=== PATIENT | male | born 1955 | race Caucasian/White ===

== ENCOUNTER 2019-12-18 05:05 | Emergency (ER) | payer BC, OTHER, SELFPAY ==
--- NOTE | ~2019-12-18 | XR_ITS ---
EXAMINATION: XR chest 2V DATE: 12/18/2019 07:51 INDICATION: Generalized chest pain TECHNIQUE: Frontal and lateral views of the chest are obtained COMPARISON: 03/17/2015 FINDINGS: The lungs are free of acute opacities. There is no pleural effusion or pneumothorax. The ca rdiomediastinal silhouette is normal. There is mild thoracic spondylosis. IMPRESSION: 1. No acute cardiopulmonary abnormality. Reviewed, dictated and finalized at location A. 3D ARTIST
--- NOTE | 2019-12-18 05:14 | ECG_ITS ---
Measurements Intervals [place] Rate: 70 P: 29 [place]: 167 QRS: -18 QRSD: 98 T: -8 QT: 387 QTc: 420 Interpretive Statements SINUS RHYTHM DELAYED PRECORDIAL R/S TRANSITION BORDERLINE ST-T WAVE ABNORMALITY- INFERIOR LEADS BASELINE ARTIFACT- I, II, III, AVF, V4 BORDERLINE ECG Electronically Signed On 12-18-2019 8:09:44 [employer] by Chris Casper D.O.
--- NOTE | 2019-12-18 07:10 | ED.CHESTPAIN ---
HPI - Chest Pain General Chief Complaint: Chest Pain <Edmar Bueno MD - Last Filed: 12/18/19 07:36> Stated Complaint: Chest pain <Edmar Bueno MD - Last Filed: 12/18/19 07:36> Time Seen by Provider: 12/18/19 05:25 <Edmar Bueno MD - Last Filed: 12/18/19 07:36> Source: patient and family <Edmar Bueno MD - Last Filed: 12/18/19 07:36> Mode of arrival: ambulatory <Edmar Bueno MD - Last Filed: 12/18/19 07:36> Limitations: no limitations <Edmar Bueno MD - Last Filed: 12/18/19 07:36> History of Present Illness HPI narrative: 64-year-old man with history of hypertension, dyslipidemia, coronary artery disease status post stents comes in this morning complaining of intense burning precordial chest pain that he woke up with This morning. Patient states that he has been having some intermittent symptoms that are similar for the last few days. The symptoms are usually worse in the morning. he states the pain is similar to when he had an WI approximately 5 years ago. He denies nausea, vomiting, shortness of breath, lightheadedness, sweaty and syncope. He noticed his blood pressure was elevated at home. <Edmar Bueno MD - Last Filed: 12/18/19 07:36> MD complaint: chest pain <Edmar Bueno MD - Last Filed: 12/18/19 07:36> Pertinent past history: coronary artery disease and prior WI <Edmar Bueno MD - Last Filed: 12/18/19 07:36> Onset (ago): hour(s) (1) <Edmar Bueno MD - Last Filed: 12/18/19 07:36> Timing of current episode: constant <Edmar Bueno MD - Last Filed: 12/18/19 07:36> Prior episodes: Yes <Edmar Bueno MD - Last Filed: 12/18/19 07:36> Onset: during rest and awoke with symptoms <Edmar Bueno MD - Last Filed: 12/18/19 07:36> Pain location: substernal <Edmar Bueno MD - Last Filed: 12/18/19 07:36> Pain radiation: right arm, left arm, left shoulder and right shoulder <Edmar Bueno MD - Last Filed: 12/18/19 07:36> Severity: severe <Edmar Bueno MD - Last Filed: 12/18/19 07:36> Quality: burning <Edmar Bueno MD - Last Filed: 12/18/19 07:36> Relieving factors: nothing <Edmar Bueno MD - Last Filed: 12/18/19 07:36> Exacerbating factors: nothing <Edmar Bueno MD - Last Filed: 12/18/19 07:36> Treatment prior to arrival: none <Edmar Bueno MD - Last Filed: 12/18/19 07:36> Risk Factors Coronary artery disease risk factors: hyperlipidemia, hypertension and family history of CAD before age 50 <Edmar Bueno MD - Last Filed: 12/18/19 07:36> Related Data Home Medications: Home Medications Medication Instructions Recorded Confirmed atorvastatin 80 mg PO DAILY 12/18/19 12/18/19 lisinopril 5 mg PO DAILY 12/18/19 12/18/19 metoprolol tartrate 25 mg PO DAILY 12/18/19 12/18/19 <Edmar Bueno MD - Last Filed: 12/18/19 07:36> Review of Systems Constitutional: Constitutional: Denies chills and Denies fever(s) <Edmar Bueno MD - Last Filed: 12/18/19 07:36> Eyes: Eyes: Denies change in vision and Denies photophobia <Edmar Bueno MD - Last Filed: 12/18/19 07:36> ENT: Denies dysphagia, Denies nasal congestion and Denies sore throat <Edmar Bueno MD - Last Filed: 12/18/19 07:36> Cardiovascular: Cardiovascular: Denies chest pain and Denies radiating jaw, neck or arm pain <Edmar Bueno MD - Last Filed: 12/18/19 07:36> Respiratory: Respiratory: Denies cough, Denies dyspnea and Denies wheezing <Edmar Bueno MD - Last Filed: 12/18/19 07:36> Gastrointestinal: Gastrointestinal: Denies abdominal pain, Reports heartburn, Denies nausea and Denies vomiting <Edmar Bueno MD - Last Filed: 12/18/19 07:36> Genitourinary: Genitourinary: Denies dysuria and Denies urinary frequency <Edmar Bueno MD - Last Filed: 12/18/19 07:36> Integumentary
[2019-12-18 07:32] LABS: Basophils Absolute Auto 0.03 K/mm3 (0.00-0.10); Basophils Percent Auto 0.7 % (0.0-1.0); Eosinophils Absolute Auto 0.11 K/mm3 (0.02-0.50); Eosinophils Percent Auto 2.5 % (1.0-6.0); Hematocrit 41.3 % (37.0-46.0); Hemoglobin 14.1 g/dL (12.4-15.3); Immature Granulocyte Absolute 0.01 K/mm3 (0.00-0.00); Immature Granulocyte Percent A 0.2 % (0.0-0.0); Lymphocytes Absolute Auto 1.83 K/mm3 (1.10-4.50); Lymphocytes Percent Auto 42.1 % (18.0-42.0); Mean Corpuscular HGB Conc 34.1 g/dL (32.0-36.0); Mean Corpuscular Hemoglobin 31.3 pg (27.0-31.0); Mean Corpuscular Volume 91.6 fL (78.0-102.0); Mean Platelet Volume 9.7 fl (8.7-11.0); Monocytes Absolute Auto 0.35 K/mm3 (0.10-0.90); Neutrophils Percent Auto 46.5 % (50.0-70.0); Platelet Count Result 224 K/mm3 (150-420); Red Blood Count 4.51 M/mm3 (4.70-6.10); Red Cell Distribution Width 12.2 % (11.6-14.4); White Blood Count 4.4 K/mm3 (4.8-10.8)
[2019-12-18 07:33] LABS: Alanine Aminotransferase 48 U/L (16-63); Albumin Level 3.7 g/dL (3.4-5.0); Alkaline Phosphatase 71 U/L (46-116); Anion Gap 14.2 mmol/L (7-16); Aspartate Amino Transferase 25 U/L (15-37); Bilirubin,Total 0.3 mg/dL (0.00-1.00); Blood Urea Nitrogen 20 mg/dL (7-18); Calcium 8.7 mg/dL (8.5-10.1); Carbon Dioxide 26 mmol/L (21-32); Chloride 106 mmol/L (98-108); Estimated Glomerular Filt Rate > 60; Glucose 103 mg/dL (70-99); Lipase 174 U/L (73-393); Osmolality Calculated 296 mOsm/kg (285-295); Potassium 4.2 mmol/L (3.5-5.1); Sodium 142 mmol/L (136-145); Total Protein 7.3 g/dL (6.4-8.2); Troponin I 0.03 ng/mL (0.00-0.056)
[2019-12-18 07:41] LABS: D Dimer 0.22 mg/L (0.19-0.50); INR 0.9; Partial Thromboplastin Time 25.1 SEC (22.3-31.6); Prothrombin Time 9.7 Seconds (9.64-11.0)
[2019-12-18 09:33] LABS: Troponin I 0.89 ng/mL (0.00-0.056)
--- NOTE | 2019-12-18 09:44 | ECG_ITS ---
Measurements Intervals [place] Rate: 58 P: 3 MT: 154 QRS: 29 QRSD: 94 T: -16 QT: 373 QTc: 368 Interpretive Statements SINUS BRADYCARDIA T WAVE ABNORMALITY IN ANTEROLATERAL LEADS- CONSIDER ISCHEMIA ABNORMAL ECG Electronically Signed On 12-18-2019 9:55:14 NURSE RN BSN by Chris Casper D.O.
[2019-12-18 09:54] VITALS: BP 165/93; PULSE 63; RESP 18; O2SAT 97
--- NOTE | 2019-12-18 09:58 | PC.NURSE ---
Patient resting in bed, he remains CP free. NSR rate 60. Patient accepted to [facility] for transfer, awaiting bed assignment. Patient had been given ASA 325 mg PO upon arrival to the ED
[2019-12-18] MEDS: HEPARIN SODIUM 5,000 UNITS/ML VIAL 5000 UNITS (10:13)
[2019-12-18] MEDS: HEPARIN SOD/D5W 100 UNITS/ML 25,000 UNITS/250 ML BAG 10 UNITS (10:28)
--- NOTE | 2019-12-18 10:31 | PC.NURSE ---
Heparin gtt started. Patient requesting something for motion sickness prior to transport. ERP is ordering scopolamine patch. Patient accepted to [facility] Rm [id number]
[2019-12-18] MEDS: SCOPOLAMINE 1.5 MG PATCH TRANSDERM (10:34)
[2019-12-18 10:52] VITALS: BP 148/87; PULSE 70; RESP 16; O2SAT 96
[2019-12-18 10:57] VITALS: BP 149/87; PULSE 70; RESP 16; O2SAT 96
== END 2019-12-18 11:15 | disposition short-term general hospital (02) ==
PROVIDERS: Emergency Provider Emergency Medicine; PCP Family Medicine
DX: R79.9 Abnormal finding of blood chemistry, unspecified (principal); I25.9 Chronic ischemic heart disease, unspecified; E78.5 Hyperlipidemia, unspecified; I10 Essential (primary) hypertension; I25.2 Old myocardial infarction
CPT/HCPCS: 36415; 71046; 80053; 83690; 84484; 85025; 85380; 85610; 85730; 93005; 96374; 99285; A9270; C9113; J1644

== ENCOUNTER 2020-01-18 16:00 | Emergency (ER) | payer BC, SELFPAY ==
--- NOTE | ~2020-01-18 | XR_ITS ---
EXAMINATION: XR chest 1V portable DATE: 01/18/2020 16:27 INDICATION: Inferior chest pain. TECHNIQUE: A single frontal view of the chest was obtained. COMPARISON: Chest 2 views 12/18/2019 FINDINGS: Calcified pulmonary nodules are consistent with old granulomatous disease. No pleural effus ion or pneumothorax. The heart size is normal. IMPRESSION: 1. No acute cardiopulmonary disease. Reviewed, dictated and finalized at location A.
--- NOTE | 2020-01-18 16:10 | ECG_ITS ---
Measurements Intervals [place] Rate: 73 P: 46 [place]: 181 QRS: -10 QRSD: 98 T: -34 QT: 373 QTc: 413 Interpretive Statements SINUS RHYTHM T WAVE ABNORMALITY IN ANTEROLATERAL LEADS- CONSIDER ISCHEMIA ABNORMAL ECG Electronically Signed On 01-18-2020 19:51:45 CDT by Chris Casper D.O.
[2020-01-18 16:18] VITALS: BP 151/90; PULSE 80; RESP 16; TEMP 36.6; O2SAT 96
[2020-01-18 16:26] LABS: Basophils Absolute Auto 0.03 K/mm3 (0.00-0.10); Basophils Percent Auto 0.6 % (0.0-1.0); Eosinophils Absolute Auto 0.09 K/mm3 (0.02-0.50); Eosinophils Percent Auto 1.9 % (1.0-6.0); Hematocrit 37.5 % (37.0-46.0); Hemoglobin 12.6 g/dL (12.4-15.3); Immature Granulocyte Absolute 0.01 K/mm3 (0.00-0.00); Immature Granulocyte Percent A 0.2 % (0.0-0.0); Lymphocytes Percent Auto 27.7 % (18.0-42.0); Mean Corpuscular HGB Conc 33.6 g/dL (32.0-36.0); Mean Corpuscular Hemoglobin 31.2 pg (27.0-31.0); Mean Corpuscular Volume 92.8 fL (78.0-102.0); Mean Platelet Volume 10.2 fl (8.7-11.0); Monocytes Absolute Auto 0.35 K/mm3 (0.10-0.90); Monocytes Percent Auto 7.5 % (2.0-11.0); Neutrophils Absolute Auto 2.9 K/mm3 (1.7-7.2); Neutrophils Percent Auto 62.1 % (50.0-70.0); Platelet Count Result 218 K/mm3 (150-420); Red Blood Count 4.04 M/mm3 (4.70-6.10); Red Cell Distribution Width 12.4 % (11.6-14.4); White Blood Count 4.7 K/mm3 (4.8-10.8)
[2020-01-18 16:41] LABS: Partial Thromboplastin Time 24.7 SEC (22.3-31.6); Prothrombin Time 10.1 Seconds (9.64-11.0)
[2020-01-18 16:45] LABS: Alanine Aminotransferase 47 U/L (16-63); Albumin Level 3.7 g/dL (3.4-5.0); Alkaline Phosphatase 60 U/L (46-116); Aspartate Amino Transferase 28 U/L (15-37); Bilirubin,Total 0.4 mg/dL (0.00-1.00); Blood Urea Nitrogen 13 mg/dL (7-18); Calcium 9.3 mg/dL (8.5-10.1); Carbon Dioxide 26 mmol/L (21-32); Chloride 106 mmol/L (98-108); Estimated Glomerular Filt Rate > 60; Glucose 154 mg/dL (70-99); Osmolality Calculated 289 mOsm/kg (285-295); Sodium 138 mmol/L (136-145); Total Protein 6.6 g/dL (6.4-8.2)
[2020-01-18 16:46] LABS: Troponin I < 0.02 ng/mL (0.00-0.056)
--- NOTE | 2020-01-18 16:53 | ED.CHESTPAIN ---
HPI - Chest Pain General Chief Complaint: Chest Pain Stated Complaint: chest pain Source: patient and family Mode of arrival: ambulatory Limitations: no limitations History of Present Illness HPI narrative: This is a 64-year-old gentleman with a history of coronary artery disease status post stent placement back in the end of November is followed by cardiology at [facility], currently presents with some some epigastric discomfort and pain that radiates into his chest epigastric tenderness with some mild shortness of breath with exertion with no nausea vomiting no no fever or chills, the patient is currently without any discomfort or pain, has been occurring off and on for the last 2 to 3 days. complaint: chest discomfort Onset (ago): day(s) Timing of current episode: episodic Prior episodes: Yes Onset: during exertion Pain location: epigastric Pain radiation: none Severity: mild Quality: tightness Relieving factors: rest Exacerbating factors: exertion Associated symptoms: dyspnea Treatment prior to arrival: none Related Data Home Medications Medication Instructions Recorded Confirmed atorvastatin [Lipitor] 80 mg PO DAILY 12/18/19 01/18/20 lisinopril 5 mg PO DAILY 12/18/19 01/18/20 metoprolol tartrate 25 mg PO DAILY 12/18/19 01/18/20 carvedilol 3.125 mg PO BID 01/18/20 01/18/20 ticagrelor [Brilinta] 90 mg PO DAILY 01/18/20 01/18/20 Allergies Allergy/AdvReac Type Severity Reaction Status Date / Time erythromycin base Allergy Mild Swelling Verified 12/18/19 10:04 of Lip/Tongue/Throat Review of Systems Review of Systems: All systems reviewed & are unremarkable except as noted in HPI and below PMFSH Past Medical History Medical History Coronary artery disease History of myocardial infarction Hyperlipidemia Hypertension Surgical History Surgical History S/P coronary artery stent placement Family History Family History Father Acute myocardial infarction, Onset Age: 46 Social History Social History Smoking status: Never smoker Alcohol intake: never Substance use: never Exam Const: General: no acute distress and alert Orientation/consciousness: patient oriented x3 HENMT: Head: normal to inspection Eyes: Conjunctivae: conjunctivae normal Pupils: Equal, round and reactive pupils present Neck: Neck: normal visual inspection Chest: Chest palpation & inspection: normal inspection of the chest Resp: Effort & Inspection: normal respiratory effort Cardio: Rate: regular rate Rhythm: regular rhythm GI: Auscultation: normal bowel sounds Other: Tender epigastric area with palpation Back/Spine/Pelvis: Back: no CVA tenderness Skin: General skin exam: normal color Rashes: no rashes Neuro: General: patient oriented x3, moves all extremities and no meningeal signs Extrem: General: normal to inspection Psych: Mental Status: mental status grossly normal Course Vital Signs Vital signs: Vital Signs Temperature 36.6 C 01/18/20 16:18 Pulse Rate 80 01/18/20 16:18 Respiratory Rate 16 01/18/20 16:18 Blood Pressure 151/90 H 01/18/20 16:18 Pulse Oximetry 96 01/18/20 16:18 Temperature 36.6 C 01/18/20 16:18 Pulse Rate 80 01/18/20 16:18 Respiratory Rate 16 01/18/20 16:18 Blood Pressure 151/90 H 01/18/20 16:18 Pulse Oximetry 96 01/18/20 16:18 MDM - Chest Pain Lab Data Attestation: I reviewed the patient's lab results. Result diagrams: 01/18/20 16:22 01/18/20 16:22 Labs: Lab Results 01/18/20 01/18/20 01/18/20 Range/Units 16:22 16:22 16:22 WBC 4.7 L (4.8-10.8) K/mm3 RBC 4.04 L (4.70-6.10) M/mm3 Hgb 12.6 (12.4-15.3) g/dL Hct 37.5 (37.0-46.0) % MCV 92.8
[2020-01-18 17:11] VITALS: BP 104/68; PULSE 73; O2SAT 95
== END 2020-01-18 17:13 | disposition home or self-care (01) ==
PROVIDERS: Emergency Provider Emergency Medicine; PCP Family Medicine
DX: R07.9 Chest pain, unspecified (principal); K21.9 Gastro-esophageal reflux disease without esophagitis
CPT/HCPCS: 36415; 71045; 80053; 84484; 85025; 85610; 85730; 93005; 99284